=== PATIENT | male | born 1985 | race Caucasian/White ===

== ENCOUNTER 2020-06-23 21:21 | Emergency (ER) | payer MEDICAID, OTHER ==
[~2020-06-23] VITALS: Ht 170.2 cm; Wt 100.0 kg
[~2020-06-23 21:21] MED LIST: DICL50TA9 PO
[2020-06-23 21:24] VITALS: BP 125/74
[2020-06-23] MEDS ORDERED: KETOROLAC 60MG/2ML VIAL IM ONE (22:00)
[2020-06-23] MEDS ORDERED: HYDROCODONE/ACETAMINOPHEN 5/325MG TABLET PO ONE (22:15)
== END 2020-06-24 00:23 | disposition home or self-care (01) ==
LOC: ER 21:21
DX: M25.562 Pain in left knee (principal)
CPT/HCPCS: 73502; 73562; 96372; 99284; J1885

== ENCOUNTER 2022-05-26 02:05 | Emergency (ER) | payer OTHER ==
[~2022-05-26] VITALS: Ht 170.2 cm; Wt 93.0 kg
[2022-05-26] MEDS ORDERED: ACETAMINOPHEN 325MG TABLET PO ONE (06:00)
[2022-05-26] MEDS ORDERED: TOPUD PO (06:44)
[2022-05-26 06:57] VITALS: BP 130/80
== END 2022-05-26 07:00 | disposition home or self-care (01) ==
LOC: ER 02:05
DX: M25.561 Pain in right knee (principal); M79.651 Pain in right thigh; M79.89 Other specified soft tissue disorders; Z87.81 Personal history of (healed) traumatic fracture
CPT/HCPCS: 73552; 73560; 99284